=== PATIENT | female | born 1950 | race Caucasian/White ===

== ENCOUNTER 2017-05-09 08:03 | Day surgery (SDC) | payer MEDICARE, BC ==
[~2017-05-09 08:03] MED LIST: Lactated Ringers 1,000 ML IV SCH; Sodium Chloride 0.9% 5 ML Syringe FLUSH PRN
[2017-05-09] MEDS ORDERED: Midazolam 1 MG/ML 2 ML SDV ONE (09:00)
[2017-05-09] MEDS ORDERED: fentaNYL 100 MCG/2 ML SDV ONE (09:01)
[2017-05-09] MEDS ORDERED: Propofol 200 MG/20 ML SDV ONE ×3 (09:01→10:08)
[2017-05-09] MEDS ORDERED: Propofol 200 MG/20 ML SDV IV ONE (09:13)
[2017-05-09] MEDS ORDERED: Midazolam 1 MG/ML 2 ML SDV IV ONE (09:13)
[2017-05-09] MEDS ORDERED: fentaNYL 100 MCG/2 ML SDV IV ONE (09:13)
[2017-05-09] MEDS ORDERED: Lactated Ringers 1,000 ML ONE (10:18)
--- NOTE | 2017-05-09 11:09 | PCM.PRNOTE ---
- Free Text/Narrative Note: PROCEDURE PERFORMED: Colonoscopy PRE-PROCEDURE DIAGNOSIS/INDICATION FOR PROCEDURE: Screening for colorectal cancer CONSENT: Informed consent was obtained prior to the procedure after discussion of the risks (including pain, bleeding, infection, perforation, adverse reaction to anesthesia, cardiovascular event), benefits and alternatives and expected outcomes were discussed with the patient. The patient expressed understanding and wished to proceed. Verbal consent given and consent form signed. PROCEDURAL PAUSE: Completed SEDATION: Per anesthesia DESCRIPTION OF PROCEDURE: Patient was placed in the left lateral decubitus position. After adequate sedation and anesthetic was administered, a rectal exam was performed revealing normal sphincter tone and no masses. A lubricated Olympus Video Colonoscope was inserted into the rectum and air insufflation was performed. The colonoscope was advanced through the rectum, sigmoid, descending , transverse, and ascending colon without difficulties. The cecum was reached and the ileocecal valve as well as the appendiceal orifice were identified and pictorially documented. After adequate visualization of the cecum, the scope was withdrawn, giving 360-degree views of the colonic mucosa and retroflexion was performed in the rectum with the following findings noted: Ileocecal valve: Normal Cecum: Normal Ascending colon: Normal Hepatic flexure: Normal Transverse colon: 6mm diameter flat polyp at 110cm removed with 3 bites using forceps with electrocauthery with complete removal and adequate hemostasis as documented by post-polypectomy picture Splenic flexure: 6mm pedunculated polyp at 90cm removed using small snare with electrocautery with complete removal and adequate hemostasis as documented by post-polypectomy picture Descending colon: Normal Sigmoid colon: 6mm pedunculated polyp at 30cm removed using small snare with electrocautery with complete removal and adequate hemostasis as documented by post-polypectomy picture; approximately 25mm pedunculated polyp at 20cm removed using small snare with electrocautery with complete removal and adequate hemostasis as documented by post-polypectomy picture Rectum: grade I internal hemorrhoids The scope was straightened, air suction performed, and the scope withdrawn without complication. Preparation adequacy excellent. IMPRESSION: Colonoscopy performed revealing one very large sized polyp and 3 medium sized polyps, pathology now pending, in addition to internal hemorrhoids. PLAN: Follow-up in the clinic in 1 week to review pathology results and make recommendation for repeat colonoscopy. Counseled regarding post-colonoscopy with polypectomy precautions.
== END 2017-05-09 12:15 | disposition home or self-care (01) ==
LOC: KA.SDS 08:03
PROVIDERS: ATTEND Family Medicine
DX: Z12.11 Encounter for screening for malignant neoplasm of colon (principal); D12.6 Benign neoplasm of colon, unspecified; K64.0 First degree hemorrhoids; J44.9 Chronic obstructive pulmonary disease, unspecified; Z79.899 Other long term (current) drug therapy; Z88.1 Allergy status to other antibiotic agents
CPT/HCPCS: 00810; 45380; 45385; J2250; J2704; J3010; J7120; 88305

== ENCOUNTER 2020-10-06 07:03 | Day surgery (SDC) | payer MEDICARE, BC ==
[~2020-10-06 07:03] MED LIST changes: +Sodium Chloride 0.9% 10 ML Syringe FLUSH PRN; -Sodium Chloride 0.9% 5 ML Syringe FLUSH PRN
[2020-10-06] MEDS ORDERED: Midazolam 1 MG/ML 2 ML SDV ONE (07:55)
[2020-10-06] MEDS ORDERED: Propofol 200 MG/20 ML SDV ONE (07:55)
--- NOTE | 2020-10-06 09:17 | PCM.PRNOTE ---
- Free Text/Narrative Note: PROCEDURE PERFORMED: Colonoscopy with polypectomy PRE-PROCEDURE DIAGNOSIS/INDICATION FOR PROCEDURE: History of adenomatous polyps: 05/09/17 colonoscopy with tubulovillous adenoma x1 (2.5cm), tubular adenoma x3 (each 0.6cm) CONSENT: Informed consent was obtained prior to the procedure after discussion of the risks (including pain, bleeding, infection, perforation, missed polyps, inability to completely remove polyps or complete procedure necessitating repeat colonoscopy, adverse reaction to anesthesia, cardiovascular event), benefits and alternatives and expected outcomes. The patient expressed understanding and wished to proceed. Verbal consent given and consent form signed. PROCEDURAL PAUSE: Completed SEDATION: Per anesthesia DESCRIPTION OF PROCEDURE: Patient was placed in the left lateral decubitus position. After adequate sedation and anesthetic was administered, a rectal exam was performed revealing no abnormalities. A lubricated Olympus Video Colonoscope was inserted into the rectum and air insufflation was performed. The colonoscope was advanced through the rectum, sigmoid, descending, transverse, and ascending colon without difficulties, though noting torturous colon. The cecum was reached and the ileocecal valve as well as the appendiceal orifice were identified and pictorially documented. After adequate visualization of the cecum, the scope was withdrawn, giving 360-degree views of the colonic mucosa and retroflexion was performed in the rectum with the following findings noted: Ileocecal valve: Normal Cecum: Normal Ascending colon: Normal Hepatic flexure: Normal Transverse colon: At 90cm, one 0.5cm polyp removed with cold forceps with subsequent complete polypoid tissue removal and hemostasis noted Splenic flexure: Normal Descending colon: At 70cm, one 0.3cm polyp removed with cold forceps with subsequent complete polypoid tissue and hemostasis noted Sigmoid colon: At 20cm, one 0.3cm polyp removed with multiple bites using cold forceps with subsequent complete polypoid tissue and hemostasis noted; Scattered small diverticulosis Rectum: Mild internal hemorrhoids The scope was straightened, air suction performed, and the scope withdrawn without complication. Preparation adequacy [place] Bowel Score 9/9. IMPRESSION: Colonoscopy performed revealing: - Three polyps, pathology now pending - Sigmoid diverticulosis - Internal hemorrhoids PLAN: Will contact the patient when pathology results received with recommendation for repeat colonoscopy. Encourage adequate fiber diet and bowel regimen to ensure avoidance of constipation.
== END 2020-10-06 10:05 | disposition home or self-care (01) ==
LOC: KA.SDS 07:03
PROVIDERS: ATTEND Family Medicine
DX: Z12.11 Encounter for screening for malignant neoplasm of colon (principal); D12.3 Benign neoplasm of transverse colon; D12.4 Benign neoplasm of descending colon; K51.40 Inflammatory polyps of colon without complications; K64.8 Other hemorrhoids; K57.30 Diverticulosis of large intestine without perforation or abscess without bleeding; E78.2 Mixed hyperlipidemia; J44.9 Chronic obstructive pulmonary disease, unspecified; Z79.899 Other long term (current) drug therapy; Z88.1 Allergy status to other antibiotic agents; Z98.890 Other specified postprocedural states; Z87.891 Personal history of nicotine dependence
CPT/HCPCS: 00812; 45380; J2250; J2704; J7120; 88305

== ENCOUNTER 2024-05-21 11:25 | Inpatient (IN) | payer BC, MEDICARE, OTHER ==
[2024-05-21] MEDS ORDERED: Sodium Chloride 0.9% 10 ML Syringe FLUSH PRN (11:35)
[2024-05-21 11:55] LABS: BASOPHILS ABSOLUTE AUTO 0.02 10^3/uL (0.00-0.10); BASOPHILS PERCENT AUTO 0.5 % (0.0-1.0); HEMATOCRIT 42.6 % (37.0-47.0); HEMOGLOBIN 12.6 g/dL (12.0-16.0); IMMATURE GRAN ABSOLUTE AUTO 0.05 10^3/uL (0.00-0.04); IMMATURE GRAN PERCENT AUTO 1.2 % (0.0-0.4); LYMPHOCYTES ABSOLUTE AUTO 0.48 10^3/uL (1.00-4.00); LYMPHOCYTES PERCENT AUTO 11.1 % (20.0-40.0); MEAN CORPUSCULAR HEMOGLOBIN 27.7 pg (27.0-31.0); MEAN CORPUSCULAR HGB CONC 29.6 g/dL (32.0-36.0); MEAN CORPUSCULAR VOLUME 93.6 fL (82.0-92.0); MEAN PLATELET VOLUME 10.2 fL (7.4-10.4); MONOCYTES ABSOLUTE AUTO 0.61 10^3/uL (0.10-0.80); MONOCYTES PERCENT AUTO 14.1 % (2.0-8.0); NEUTROPHILS ABSOLUTE AUTO 3.17 10^3/uL (2.50-7.00); NEUTROPHILS PERCENT AUTO 73.1 % (50.0-70.0); PLATELET COUNT,PLT 141 10^3/uL (150-400); RED BLOOD CELL COUNT 4.55 10^6/uL (3.80-5.50); WHITE BLOOD CELL COUNT,WBC 4.33 10^3/uL (5.00-10.00)
[2024-05-21 12:17] LABS: LACTIC ACID 0.8 mmol/L (0.4-2.0)
[2024-05-21] MEDS: Sodium Chloride 0.9% 1,000 ML IV SCH (12:19)
[2024-05-21] MEDS: methylPREDNISolone Sodium Succinate 125 MG/2 ML SDV IVPUSH ONE (12:27)
[2024-05-21 12:34] LABS: ALBUMIN 3.21 g/dL (3.40-5.00); ANION GAP 2.5 mmol/L (5-15); BILIRUBIN TOTAL 0.3 mg/dL (0.2-1.0); CALCIUM 8.3 mg/dL (8.7-10.3); CARBON DIOXIDE,CO2 44.8 mmol/L (21.0-32.0); CREATININE 0.42 mg/dL (0.51-1.17); EST CRCL DRUG DOSING (CG) 90.13 mL/min; POTASSIUM,K 4.3 mmol/L (3.5-5.1); PROTEIN TOTAL,TP 6.7 g/dL (6.4-8.2)
[2024-05-21 13:21] LABS: HCO3 ARTERIAL,POC 46.7 mmol/L (21-28); O2 SATURATION ARTERIAL,POC 90.6 % (94-98); PCO2 ARTERIAL,POC 115 mmHg (35-48); PH ARTERIAL,POC 7.22 pH (7.35-7.45); PO2 ARTERIAL,POC 78 mmHg (83-108)
[2024-05-21] MEDS ORDERED: Acetaminophen 325 MG Tab PO PRN (15:07)
[2024-05-21] MEDS ORDERED: Melatonin 3 MG Tab PO PRN (15:07)
[2024-05-21 15:25] LABS: PCO2 VENOUS,POC 117 mmHg (41-51); PH VENOUS,POC 7.22 pH (7.32-7.43); PO2 VENOUS,POC 98 mmHg
[2024-05-21] MEDS: predniSONE 20 MG Tab PO ONE (15:27)
[2024-05-21] MEDS: Albuterol/Ipratropium 3.0-0.5 MG/3 ML Neb Soln NEB SCH (15:27)
[2024-05-21] MEDS: Enoxaparin 40 MG/0.4 ML Syringe SUBCUT SCH (15:27)
[2024-05-21 19:10] LABS: PCO2 VENOUS,POC 87 mmHg (41-51); PH VENOUS,POC 7.35 pH (7.32-7.43); PO2 VENOUS,POC 27 mmHg
[2024-05-21] MEDS: Azithromycin 250 MG Tab PO ONE (19:39)
[2024-05-21] MEDS: Montelukast 10 MG Tab PO SCH (20:56)
[2024-05-21] MEDS: atorvaSTATin 10 MG Tab PO SCH (20:56)
[2024-05-21] MEDS: Oseltamivir 75 MG Cap PO SCH (20:57)
[2024-05-21] MEDS ORDERED: Non-Formulary Medication 1 Each (Simvastatin [Simvastatin] 20 MG Tablet) PO SCH (21:00)
[2024-05-22] MEDS: predniSONE 20 MG Tab PO SCH (07:58)
[2024-05-22] MEDS: Albuterol 0.083% 2.5 MG/3 ML Neb Soln NEB PRN (08:48)
[2024-05-22] MEDS ORDERED: Azithromycin 250 MG Tab PO SCH (09:00)
[2024-05-23] MEDS: Oseltamivir 75 MG Cap PO ONE (10:50)
[2024-05-23 11:38] VITALS: BP 153/52; PULSE 95
== END 2024-05-23 11:15 | disposition home or self-care (01) | DRG 193 ==
LOC: KA.ED 11:25 → MERGE 13:58 → KA.MS 13:58
PROVIDERS: ADMIT Internal Medicine; ATTEND Internal Medicine
PROC: 4A133R1 Monitoring of Arterial Saturation, Peripheral, Percutaneous Approach (ICD-10-PCS; principal; 2024-05-21)
DX: J10.1 Influenza due to other identified influenza virus with other respiratory manifestations (principal); J96.01 Acute respiratory failure with hypoxia; J96.02 Acute respiratory failure with hypercapnia; J44.1 Chronic obstructive pulmonary disease with (acute) exacerbation; H26.9 Unspecified cataract; H54.7 Unspecified visual loss; R09.02 Hypoxemia; J44.89 Other specified chronic obstructive pulmonary disease; M19.90 Unspecified osteoarthritis, unspecified site; J45.909 Unspecified asthma, uncomplicated; E78.00 Pure hypercholesterolemia, unspecified; Z88.1 Allergy status to other antibiotic agents; Z79.899 Other long term (current) drug therapy; Z87.891 Personal history of nicotine dependence; Z99.81 Dependence on supplemental oxygen; Z79.02 Long term (current) use of antithrombotics/antiplatelets; Z81.0 Family history of intellectual disabilities; Z86.16 Personal history of COVID-19; Z79.51 Long term (current) use of inhaled steroids; Z98.49 Cataract extraction status, unspecified eye; Z98.890 Other specified postprocedural states
CPT/HCPCS: 36415; 36600; 71045; 80053; 82803; 83605; 83880; 84484; 85025; 85379; 87040; 87428-QW; 93005; 93010; 94640; 96361; 96374; 99223-GT; 99233-GT; 99238-GT; 99284; 99285-25; A9270-GY; J1650; J2919; J7030; J7512; J7613-GY; J7620-GY; Q3014

== ENCOUNTER 2024-05-31 12:30 | Inpatient (IN) | payer MEDICARE ==
[2024-05-31 13:03] LABS: BASOPHILS ABSOLUTE AUTO 0.03 10^3/uL (0.00-0.10); BASOPHILS PERCENT AUTO 0.2 % (0.0-1.0); EOSINOPHILS ABSOLUTE AUTO 0.03 10^3/uL (0.10-0.30); EOSINOPHILS PERCENT AUTO 0.2 % (1.0-3.0); HEMATOCRIT 41.9 % (37.0-47.0); HEMOGLOBIN 12.3 g/dL (12.0-16.0); IMMATURE GRAN ABSOLUTE AUTO 0.06 10^3/uL (0.00-0.04); IMMATURE GRAN PERCENT AUTO 0.4 % (0.0-0.4); LYMPHOCYTES ABSOLUTE AUTO 0.76 10^3/uL (1.00-4.00); LYMPHOCYTES PERCENT AUTO 5.3 % (20.0-40.0); MEAN CORPUSCULAR HEMOGLOBIN 27.3 pg (27.0-31.0); MEAN CORPUSCULAR HGB CONC 29.4 g/dL (32.0-36.0); MEAN CORPUSCULAR VOLUME 93.1 fL (82.0-92.0); MEAN PLATELET VOLUME 10.1 fL (7.4-10.4); MONOCYTES ABSOLUTE AUTO 1.57 10^3/uL (0.10-0.80); NEUTROPHILS ABSOLUTE AUTO 11.77 10^3/uL (2.50-7.00); NEUTROPHILS PERCENT AUTO 82.9 % (50.0-70.0); PLATELET COUNT,PLT 309 10^3/uL (150-400); RED CELL DISTRIBUTION WIDTH 13.5 % (11.5-14.5); WHITE BLOOD CELL COUNT,WBC 14.22 10^3/uL (5.00-10.00)
[2024-05-31 13:20] LABS: ALANINE AMINOTRANSFERASE,ALT 16 U/L (14-63); ALBUMIN 2.54 g/dL (3.40-5.00); ALKALINE PHOSPHATASE 56 U/L (46-116); ASPARTATE AMNIOTRANSFERASE,AST 14 U/L (15-37); BILIRUBIN TOTAL 0.7 mg/dL (0.2-1.0); BLOOD UREA NITROGEN,BUN 5 mg/dL (7-18); CALCIUM 9.3 mg/dL (8.7-10.3); CREATININE 0.26 mg/dL (0.51-1.17); EST CRCL DRUG DOSING (CG) 145.59 mL/min; GLUCOSE RANDOM 118 mg/dL (70-140); POTASSIUM,K 4.2 mmol/L (3.5-5.1); PROTEIN TOTAL,TP 6.7 g/dL (6.4-8.2); SODIUM,NA 136 mmol/L (136-145)
[2024-05-31 13:29] LABS: ANION GAP 6.19999 mmol/L (5-15); CARBON DIOXIDE,CO2 > 45.0 mmol/L (21.0-32.0); CHLORIDE,CL 89 mmol/L (98-107); ESTIMATED GFR 114 mL/min (>=60)
[2024-05-31] MEDS ORDERED: Sennosides/Docusate Sodium 50-8.6 MG Tab PO PRN (15:00)
[2024-05-31] MEDS ORDERED: Albuterol 0.083% 2.5 MG/3 ML Neb Soln NEB PRN (15:00)
[2024-05-31] MEDS ORDERED: Polyethylene Glycol 3350 Powder 17 GM Packet PO PRN (15:00)
[2024-05-31] MEDS ORDERED: Acetaminophen 325 MG Tab PO PRN (15:04)
[2024-05-31] MEDS ORDERED: Ondansetron 4 MG/2 ML SDV IV PRN (15:30)
[2024-05-31] MEDS: Furosemide 40 MG/4 ML VIAL IVPUSH ONE (15:37)
[2024-05-31] MEDS: Cefepime 2 GM Vial IVPUSH SCH (15:37)
[2024-05-31] MEDS: Albuterol/Ipratropium 3.0-0.5 MG/3 ML Neb Soln NEB SCH (15:38)
[2024-05-31] MEDS: Fluticasone NASAL Spray 16 GM Bottle NASBOTH SCH (15:39)
[2024-05-31] MEDS: methylPREDNISolone Sodium Succinate 40 MG/1 ML SDV IVPUSH SCH (15:40)
[2024-05-31] MEDS: Loratadine 10 MG Tab PO SCH (15:40)
[2024-05-31] MEDS: VANCOmycin 1.5 GM/300 ML 1.5 GM in Premix Bag 1 BAG IV SCH (16:49)
[2024-05-31] MEDS: Sodium Chloride 0.9% 250 ML IV SCH (17:08)
[2024-05-31] MEDS: atorvaSTATin 10 MG Tab PO SCH (21:05)
[2024-05-31] MEDS: Sodium Chloride 0.9% 10 ML Syringe FLUSH PRN (21:38)
[2024-06-01 07:25] LABS: EOSINOPHILS ABSOLUTE AUTO 0.01 10^3/uL (0.10-0.30); EOSINOPHILS PERCENT AUTO 0.1 % (1.0-3.0); HEMATOCRIT 37.6 % (37.0-47.0); IMMATURE GRAN ABSOLUTE AUTO 0.02 10^3/uL (0.00-0.04); IMMATURE GRAN PERCENT AUTO 0.2 % (0.0-0.4); LYMPHOCYTES ABSOLUTE AUTO 0.74 10^3/uL (1.00-4.00); LYMPHOCYTES PERCENT AUTO 8.3 % (20.0-40.0); MEAN CORPUSCULAR HGB CONC 29.3 g/dL (32.0-36.0); MEAN CORPUSCULAR VOLUME 92.2 fL (82.0-92.0); MEAN PLATELET VOLUME 10.5 fL (7.4-10.4); MONOCYTES ABSOLUTE AUTO 0.86 10^3/uL (0.10-0.80); MONOCYTES PERCENT AUTO 9.6 % (2.0-8.0); NEUTROPHILS ABSOLUTE AUTO 7.33 10^3/uL (2.50-7.00); NEUTROPHILS PERCENT AUTO 81.8 % (50.0-70.0); PLATELET COUNT,PLT 292 10^3/uL (150-400); RED BLOOD CELL COUNT 4.08 10^6/uL (3.80-5.50); RED CELL DISTRIBUTION WIDTH 13.2 % (11.5-14.5); WHITE BLOOD CELL COUNT,WBC 8.96 10^3/uL (5.00-10.00)
[2024-06-01 07:45] LABS: ALANINE AMINOTRANSFERASE,ALT 22 U/L (14-63); ALBUMIN 2.08 g/dL (3.40-5.00); ALKALINE PHOSPHATASE 47 U/L (46-116); ASPARTATE AMNIOTRANSFERASE,AST 17 U/L (15-37); BILIRUBIN TOTAL 0.4 mg/dL (0.2-1.0); BLOOD UREA NITROGEN,BUN 7 mg/dL (7-18); CALCIUM 9.1 mg/dL (8.7-10.3); CHLORIDE,CL 95 mmol/L (98-107); CREATININE 0.33 mg/dL (0.51-1.17); EST CRCL DRUG DOSING (CG) 114.71 mL/min; GLUCOSE RANDOM 87 mg/dL (70-140); MAGNESIUM 1.7 mg/dL (1.8-2.4); POTASSIUM,K 4.4 mmol/L (3.5-5.1); PROTEIN TOTAL,TP 5.9 g/dL (6.4-8.2); SODIUM,NA 141 mmol/L (136-145)
[2024-06-01 07:46] LABS: ANION GAP 5.39999 mmol/L (5-15); CARBON DIOXIDE,CO2 > 45.0 mmol/L (21.0-32.0); ESTIMATED GFR 107 mL/min (>=60)
[2024-06-01] MEDS: Enoxaparin 40 MG/0.4 ML Syringe SUBCUT SCH (08:33)
[2024-06-01] MEDS: Furosemide 40 MG/4 ML VIAL IVPUSH ONE (12:06)
[2024-06-01] MEDS: guaiFENesin 600 MG Tab.ER PO SCH (12:06)
[2024-06-01] MEDS: VANCOmycin 750 MG/150 ML 750 MG in Premix Bag 1 BAG IV SCH (16:30)
[2024-06-02 06:19] VITALS: BP 130/52
[2024-06-02 07:34] LABS: BASOPHILS ABSOLUTE AUTO 0.02 10^3/uL (0.00-0.10); BASOPHILS PERCENT AUTO 0.2 % (0.0-1.0); EOSINOPHILS ABSOLUTE AUTO 0.02 10^3/uL (0.10-0.30); EOSINOPHILS PERCENT AUTO 0.2 % (1.0-3.0); HEMATOCRIT 38.1 % (37.0-47.0); HEMOGLOBIN 11.2 g/dL (12.0-16.0); IMMATURE GRAN ABSOLUTE AUTO 0.03 10^3/uL (0.00-0.04); IMMATURE GRAN PERCENT AUTO 0.3 % (0.0-0.4); LYMPHOCYTES ABSOLUTE AUTO 1.01 10^3/uL (1.00-4.00); MEAN CORPUSCULAR HEMOGLOBIN 27.3 pg (27.0-31.0); MEAN CORPUSCULAR HGB CONC 29.4 g/dL (32.0-36.0); MEAN CORPUSCULAR VOLUME 92.9 fL (82.0-92.0); MEAN PLATELET VOLUME 9.7 fL (7.4-10.4); MONOCYTES ABSOLUTE AUTO 1.13 10^3/uL (0.10-0.80); MONOCYTES PERCENT AUTO 12.3 % (2.0-8.0); NEUTROPHILS ABSOLUTE AUTO 7.01 10^3/uL (2.50-7.00); PLATELET COUNT,PLT 323 10^3/uL (150-400); RED CELL DISTRIBUTION WIDTH 13.3 % (11.5-14.5); WHITE BLOOD CELL COUNT,WBC 9.22 10^3/uL (5.00-10.00)
[2024-06-02 07:51] LABS: ALBUMIN 2.14 g/dL (3.40-5.00); BILIRUBIN TOTAL 0.3 mg/dL (0.2-1.0); CALCIUM 9.1 mg/dL (8.7-10.3); CREATININE 0.29 mg/dL (0.51-1.17); EST CRCL DRUG DOSING (CG) 130.53 mL/min; POTASSIUM,K 3.6 mmol/L (3.5-5.1); PROTEIN TOTAL,TP 6.2 g/dL (6.4-8.2)
[2024-06-02 07:54] LABS: ANION GAP -0.2 mmol/L (5-15); CARBON DIOXIDE,CO2 52.8 mmol/L (21.0-32.0)
[2024-06-02 12:47] VITALS: PULSE 110
== END 2024-06-02 11:50 | disposition home or self-care (01) | DRG 871 ==
LOC: KA.ED 12:30 → KA.MS 14:08
PROVIDERS: ADMIT Internal Medicine; ATTEND Internal Medicine
DX: J18.9 Pneumonia, unspecified organism (principal); R06.02 Shortness of breath; A40.3 Sepsis due to Streptococcus pneumoniae; J10.1 Influenza due to other identified influenza virus with other respiratory manifestations; J44.89 Other specified chronic obstructive pulmonary disease; J12.9 Viral pneumonia, unspecified; J96.21 Acute and chronic respiratory failure with hypoxia; R65.20 Severe sepsis without septic shock; J44.0 Chronic obstructive pulmonary disease with (acute) lower respiratory infection; J44.1 Chronic obstructive pulmonary disease with (acute) exacerbation; H54.7 Unspecified visual loss; E78.00 Pure hypercholesterolemia, unspecified; Z99.81 Dependence on supplemental oxygen; Z79.899 Other long term (current) drug therapy; Z88.1 Allergy status to other antibiotic agents; Z79.51 Long term (current) use of inhaled steroids; Z86.0100 Personal history of colon polyps, unspecified; Z86.16 Personal history of COVID-19; Z98.49 Cataract extraction status, unspecified eye; Z98.890 Other specified postprocedural states; Z87.09 Personal history of other diseases of the respiratory system
CPT/HCPCS: 36415; 71045; 80053; 80202; 83605; 83735; 83880; 85025; 87040; 87428-QW; 94640; 99223-GT; 99233-GT; 99239-GT; 99284; 99285; A9270-GY; J0692; J1650; J1940; J2919; J3372; J7030; J7620-GY; Q3014